=== PATIENT | female | born 1940 | race Caucasian/White ===

== ENCOUNTER 2018-11-17 20:48 | Emergency (ER) | payer MEDICARE, OTHER ==
--- NOTE | 2018-11-17 21:49 | EDM.PDOC ---
ED HPI GENERAL MEDICAL PROBLEM - General Chief Complaint: Laceration Stated Complaint: FALL WITH LACERATION TO HEAD Time Seen by Provider: 11/17/18 21:15 Source of Information: Reports: Patient, Family History Limitations: Reports: No Limitations - History of Present Illness INITIAL COMMENTS - FREE TEXT/NARRATIVE: This patient presents to the ED for evaluation of a scalp injury following a fall. She was returning home and slipped on her sidewalk falling backwards. She hit her head but denies any LOC. She denies headache. There has been no vomiting , change in personality or behavior. The patient is able to accurately recount the details of the incident. She denies other injuries or concerns. Onset: Today, Sudden Onset Date: 11/17/18 Onset Time: 20:00 Location: Reports: Head (posterior scalp) Front/Back Body Image: 1 - injury Treatments MANAGER SKILLED: Reports: Cold Therapy BACK OF HEAD Pain Score (Numeric/FACES): 3 - Related Data Allergies Allergy/AdvReac Type Severity Reaction Status Date / Time No Known Allergies Allergy Verified 11/17/18 21:39 ED ROS GENERAL - Review of Systems Review Of Systems: ROS reveals no pertinent complaints other than HPI. Constitutional: Reports: No Symptoms HEENT: Reports: No Symptoms Respiratory: Reports: No Symptoms Cardiovascular: Reports: No Symptoms GI/Abdominal: Reports: No Symptoms Musculoskeletal: Reports: No Symptoms Skin: Reports: Lesions Neurological: Denies: Headache ED EXAM, SKIN/RASH Exam: See Below Exam Limited By: No Limitations General Appearance: Alert, WD/WN, No Apparent Distress Eye Exam: Bilateral Eye: Normal Inspection, PERRL Ears: Normal External Exam Nose: Normal Inspection Throat/Mouth: Normal Inspection Head: Normocephalic, Other (abrasion approximately 2 x 2 cm posterior scalp; bleeding controlled.) Neck: Normal Inspection, Supple, Non-Tender, Full Range of Motion Respiratory/Chest: No Respiratory Distress, No Accessory Muscle Use Extremities: Normal Range of Motion, No Pedal Edema, Normal Capillary Refill Neurological: Alert, Oriented Skin: Warm, Intact, Other (except as described above.) Location, Skin: Head Course - Vital Signs Last Recorded V/S: Last Vital Signs Temp 37.2 C 11/17/18 21:27 Pulse 86 11/17/18 21:27 Resp 20 11/17/18 21:27 BP 131/66 11/17/18 21:27 Pulse Ox 98 11/17/18 21:27 - Re-Assessments/Exams Free Text/Narrative Re-Assessment/Exam: This patient presents for evaluation of a injury to the posterior scalp.. [facility] the patient does not warrant head CT evaluation and I believe she is at very low risk for skull fracture or intracerebral bleeding. Concussion is likewise of very low probability with no loss of consciousness and normal mental status here. Cervical spine is cleared clinically. The head to toe trauma is exam is negative otherwise and further trauma workup is not necessary. The abrasion was cleaned and covered with bacitracin ointment. Supportive care instructions were given. 11/17/18 21:50 Departure - Departure Time of Disposition: 21:45 Disposition: DC[facility] to [facility] Condition: Good Clinical Impression: Broken skin, Abrasion, Closed head injury, Abrasion - Discharge Information *PRESCRIPTION DRUG MONITORING PROGRAM REVIEWED*: Not Applicable *COPY OF PRESCRIPTION DRUG MONITORING REPORT IN PATIENT ROXANNE: Not Applicable Instructions: Head Injury, Adult, [id number] Forms: ED Department Discharge Additional Instructions: USE TYLENOL FOR THE DISCOMFORT AND AN ICE PACK WELL. BE WATCHFUL FOR THINGS SUCH VOMITING, CHANGE IN PERSONALITY, AND VISUAL CHANGES, IF ANY OF THE ABOVE HAPPENS RETURN TO THE ER. IF YOU HAVE ANY QUESTIONS FEEL FREE TO CALL . THANK YOU AND HAVE A GREAT REST OF YOUR NIGHT-REID
== END 2018-11-17 21:49 | disposition designated cancer center or children's hospital (05) ==
LOC: LB.ED 20:48
DX: S01.01XA Laceration without foreign body of scalp, initial encounter (principal); W00.0XXA Fall on same level due to ice and snow, initial encounter; Y92.009 Unspecified place in unspecified non-institutional (private) residence as the place of occurrence of the external cause
CPT/HCPCS: 99282; 99283